=== PATIENT | male | born 1955 | race Asian ===

== ENCOUNTER 2018-08-15 06:33 | Emergency (ER) | payer MEDICARE, MEDICAID ==
[~2018-08-15] VITALS: Ht 170.2 cm; Wt 71.4 kg
[2018-08-15] MEDS ORDERED: CALC25 PO (06:44)
[2018-08-15] MEDS ORDERED: MYCO250C7 PO (06:44)
[2018-08-15] MEDS ORDERED: CETI-170 PO (06:44)
[2018-08-15] MEDS ORDERED: PRED5 PO (06:44)
[2018-08-15] MEDS ORDERED: VALS160T2 PO (06:44)
[2018-08-15] MEDS ORDERED: TACR1 PO (06:44)
[2018-08-15] MEDS ORDERED: HYDR25TA84 PO (06:44)
[2018-08-15] MEDS ORDERED: ISOS60TA4 PO (06:44)
[2018-08-15] MEDS ORDERED: CARV25 PO (06:44)
[2018-08-15] MEDS ORDERED: TACR.5 PO (06:44)
[2018-08-15] MEDS ORDERED: ASPI81 PO (06:44)
[2018-08-15] MEDS ORDERED: VITAD1000 PO (06:44)
[2018-08-15] MEDS ORDERED: LOSA50TA64 PO (06:44)
[2018-08-15] MEDS ORDERED: ATOR40TA28 PO (06:44)
[2018-08-15 08:03] VITALS: BP 130/88
== END 2018-08-15 08:25 | disposition home or self-care (01) ==
LOC: EMS 06:34
DX: S01.311A Laceration without foreign body of right ear, initial encounter (principal); E78.00 Pure hypercholesterolemia, unspecified; I10 Essential (primary) hypertension; Z79.82 Long term (current) use of aspirin; X58.XXXA Exposure to other specified factors, initial encounter; Y93.89 Activity, other specified; Y92.89 Other specified places as the place of occurrence of the external cause; Y99.8 Other external cause status

== ENCOUNTER 2018-08-15 09:57 | Emergency (ER) | payer MEDICARE, MEDICAID ==
[~2018-08-15] VITALS: Ht 170.2 cm; Wt 70.9 kg
[~2018-08-15 09:57] MED LIST: ASPI81 PO; ATOR40TA28 PO; CALC25 PO; CARV25 PO; CETI-170 PO; HYDR25TA84 PO; ISOS60TA4 PO; LOSA50TA64 PO; MYCO250C7 PO; PRED5 PO; TACR.5 PO; TACR1 PO; VALS160T2 PO; VITAD1000 PO
[2018-08-15 09:59] VITALS: BP 137/67
== END 2018-08-15 10:31 | disposition home or self-care (01) ==
LOC: EMS 09:58
DX: H92.21 Otorrhagia, right ear (principal); I10 Essential (primary) hypertension; I12.0 Hypertensive chronic kidney disease with stage 5 chronic kidney disease or end stage renal disease; N18.6 End stage renal disease; E78.00 Pure hypercholesterolemia, unspecified; Z99.2 Dependence on renal dialysis; Z79.82 Long term (current) use of aspirin